=== PATIENT | female | born 1990 | race Caucasian/White ===

== ENCOUNTER 2017-05-23 00:40 | Emergency (ER) | payer OTHER ==
[2017-05-23 02:24] VITALS: BP 134/96
== END 2017-05-23 02:24 | disposition home or self-care (01) ==
LOC: ED 00:40
DX: J06.9 Acute upper respiratory infection, unspecified (principal); R22.41 Localized swelling, mass and lump, right lower limb; G43.909 Migraine, unspecified, not intractable, without status migrainosus

== ENCOUNTER 2017-07-13 18:28 | Emergency (ER) | payer OTHER ==
[2017-07-13 20:49] VITALS: BP 125/73
== END 2017-07-13 20:49 | disposition home or self-care (01) ==
LOC: ED 18:28
DX: G43.909 Migraine, unspecified, not intractable, without status migrainosus (principal); K64.5 Perianal venous thrombosis